=== PATIENT | male | born 1945 | race Caucasian/White ===

== ENCOUNTER 2019-04-04 17:09 | Emergency (ER) | payer MEDICARE, OTHER ==
[2019-04-04 17:59] VITALS: BP 170/91; PULSE 111
--- NOTE | 2019-04-04 18:40 | EDM.PDOC ---
ED HPI GENERAL MEDICAL PROBLEM - General Chief Complaint: Genitourinary Problem Stated Complaint: BLOOD CLOTS IN URINE Time Seen by Provider: 04/04/19 18:25 Source of Information: Reports: Patient, Family History Limitations: Reports: No Limitations - History of Present Illness INITIAL COMMENTS - FREE TEXT/NARRATIVE: 74-year-old male with asymptomatic hematuria for the past 3 days. He is on Plavix. No trauma, no pain, no fever or chills, no dysuria, no nausea or vomiting or any other symptoms. Onset: Gradual Duration: Day(s): (3 days slowly worsening) Associated Symptoms: Reports: No Other Symptoms denies Pain Score (Numeric/FACES): 0 - Related Data Allergies Allergy/AdvReac Type Severity Reaction Status Date / Time niacin Allergy Itching Verified 07/10/14 02:25 Home Meds: Home Meds Albuterol Sulfate [Proair Hfa] 2 puff IH Q4HR PRN 03/17/13 [History] Aspirin [Adult Low Dose Aspirin EC] 81 mg PO DAILY 03/17/13 [History] Clopidogrel [Plavix] 75 mg PO DAILY 03/17/13 [History] Isosorbide Mononitrate [Imdur] 30 mg PO DAILY 03/17/13 [History] Fluticasone/Salmeterol [Advair 250-50] 1 puff INH BID 04/04/19 [History] Gabapentin [Neurontin] 300 - 600 mg PO BEDTIME PRN 04/04/19 [History] Levothyroxine [Synthroid] 50 mcg PO DAILY 04/04/19 [History] Tamsulosin HCl 0.4 mg PO DAILY 04/04/19 [History] atorvaSTATin [Lipitor] 80 mg PO DAILY 04/04/19 [History] Past Medical History Cardiovascular History: Reports: CAD, Heart Failure, Hypertension, Other (See Below) Other Cardiovascular History: Aortic valve stenosis Genitourinary History: Reports: Renal Disease - Past Surgical History Male Surgical History: Reports: TURP-Transurethral Resection of Prostate Social & Family History - Tobacco Use Smoking Status *Q: Never Smoker - Caffeine Use Caffeine Use: Reports: Coffee - Recreational Drug Use Recreational Drug Use: No ED ROS GENERAL - Review of Systems Review Of Systems: See Below Constitutional: Denies: Fever, Chills HEENT: Reports: No Symptoms Respiratory: Denies: Shortness of Breath Cardiovascular: Denies: Chest Pain GI/Abdominal: Denies: Abdominal Pain, Nausea, Vomiting : Reports: Hematuria. Denies: Flank Pain, Frequency, Urgency Skin: Reports: No Symptoms ED EXAM, RENAL/ - Physical Exam Exam: See Below Exam Limited By: No Limitations General Appearance: Alert, No Apparent Distress Head: Atraumatic Respiratory/Chest: No Respiratory Distress, Lungs Clear GI/Abdominal: Non-Tender Back Exam: No: CVA Tenderness (R), CVA Tenderness (L) Neurological: Alert, Oriented Psychiatric: Normal Affect, Normal Mood Skin Exam: Warm, Dry Course - Vital Signs Last Recorded V/S: Last Vital Signs Temp 98.1 F 04/04/19 18:00 Pulse 111 H 04/04/19 18:00 Resp 16 04/04/19 18:00 BP 170/91 H 04/04/19 18:00 Pulse Ox 92 L 04/04/19 18:00 - Orders/Labs/Meds Labs: Laboratory Tests 04/04/19 04/04/19 04/04/19 Range/Units 18:38 18:49 18:49 WBC 6.9 (4.5-11.0) K/uL RBC 4.52 (4.30-5.90) M/uL Hgb 13.1 (12.0-15.0) g/dL Hct 39.7 L (40.0-54.0) % MCV 88 (80-98) fL MCH 29 (27-31) pg MCHC 33 (32-36) % Plt Count 240 (150-400) K/uL Neut % (Auto) 53 (36-66) % Lymph % (Auto) 29 (24-44) % [place] % (Auto) 10 H (2-6) % Eos % (Auto) 8 H (2-4) % Baso % (Auto) 0 (0-1) % Sodium 139 L (140-148) mmol/L Potassium 3.9 (3.6-5.2) mmol/L Chloride 103 (100-108) mmol/L Carbon Dioxide 30 (21-32) mmol/L Anion Gap 9.9 (5.0-14.0) mmol/L BUN 19 H (7-18) mg/dL Creatinine 1.4 H (0.8-1.3) mg/dL Est Cr Clr Drug Dosing 39.05 mL/min Estimated GFR (MDRD) 49 L (>60) Glucose 116 H (74-106) mg/dL Calcium 8.5 (8.5-10.1) mg/dL Total Bilirubin 0.3 (0.2-1.0) mg/dL AST 17 (15-37) U/L ALT 27 (12-78) U/L Alkaline Phosphatase 67 D (46-116) U/L Total Protein 7.3 (6.4-8.2) g/dL Albumin 3.7 (3.4-5.0) g/dL Globulin 3.6 H (2.3-3.5) g/dL Albumin/Globulin Ratio 1.0 L (1.2-2.2) Urine Color Red A (YELLOW) Urine Appearance Turbid A (CLEAR) Urine pH 7.0 (5.0-8.0) Ur Specific [place] >= 1.030 (1.008-1.030) Urine Protein 100 H (NEGATIVE) mg/dL Urine Glucose (UA) Negative (NEGATIVE) mg/dL Urine Ketones Negative (NEGATIVE) mg/dL Urine Occult Blood Moderate H (NEGATIVE) Urine Nitrite Negative (NEGATIVE) Urine Bilirubin Negative (NEGATIVE) Urine Urobilinogen 0.2 (0.2-1.0) EU/dL Ur Leukocyte Esterase Negative (NEGATIVE) Urine RBC Packed H (0-5) Urine WBC Not seen (0-5) Ur Epithelial Cells Not seen Amorphous Sediment Not seen Urine Bacteria Not seen Urine Mucus Not seen Meds: Medications Discontinued Medications Generic Name Dose Route Start Last Admin Trade Name Freq PRN Reason Stop Dose Admin Sodium Chloride 1,000 mls @ 1,000 mls/hr 04/04/19 20:00 04/04/19 20:18 Normal Saline IV 1,000 mls/hr ASDIRECTED JOEL Administration Sodium Chloride 74 mls @ 3 mls/sec 04/04/19 20:15 04/04/19 20:37 Normal Saline IV 3 mls/sec ASDIRECTED JOEL Administration Iopamidol 100 ml 04/04/19 20:01 04/04/19 20:37 Isovue-300 (61%) IV 04/05/19 20:02 100 ml . DIRECTED PRN Administration RADIOLOGY EXAM - Re-Assessments/Exams Free Text/Narrative Re-Assessment/Exam: 04/04/19 18:40 Urine is grossly bloody, UA was obtained as well as a CBC and CMP. 04/04/19 21:37 Phone consultation with urology was obtained and a urogram CT was recommended. Results are below. IMPRESSION: 1. The urinary tract appears unremarkable. 2. No acute findings in the abdomen or pelvis. 3. Marked heterogeneity and enlargement of the prostate gland. Recommend correlation with L[facility]IS and PSA levels. The bladder is decompressed with diffuse bladder wall thickening probably reflecting bladder outlet obstruction. 4. Rectosigmoid colon is incompletely distended however there may be asymmetric wall thickening of the rectum. Consider colonoscopy. 04/04/19 21:47 Patient is agreeable to rechecking early next week for a prostate exam and discussing with his primary care provider referral to urology. Hopefully Dr. Klein can see the patient early next week and set up urology referral if necessary. Departure - Departure Time of Disposition: 22:00 Disposition: Home, Self-Care 01 Clinical Impression: Hematuria syndrome - Discharge Information Instructions: Hematuria, Adult Referrals: Zulema Pabon MD [Primary Care Provider] - Forms: ED Department Discharge Care Plan Goals: Return if you develop difficulties urinating, otherwise recheck with your primary doctor early next week to discuss any further testing, exam, or urology referral. Sepsis Event Note - Evaluation Sepsis Screening Result: No Definite Risk - Focused Exam Vital Signs: Vital Signs Temp Pulse Resp BP Pulse Ox 04/04/19 18:00 98.1 F 111 H 16 170/91 H 92 L 04/04/19 17:52 98.1 F 111 H 16 170/91 H 92 L Date Exam was Performed: 04/05/19 Time Exam was Performed: 00:05
[2019-04-04] MEDS ORDERED: Sodium Chloride 0.9% 1,000 ML IV SCH (20:00)
[2019-04-04] MEDS ORDERED: Iopamidol 612 MG/ML 100 ML Bottle IV PRN (20:01)
--- NOTE | 2019-04-04 21:33 | CRLCT ---
INDICATION: Hematuria CT urogram. 100 mL Isovue. Coronal sagittal reformatted images obtained. Findings: Heart size normal. Subpleural 4 mm right lower lobe pulmonary nodule series 3 image 1. 5 mm right lower lobe subpleural pulmonary nodule on image 8. Multiple low-density lesions in the liver these most likely reflect cysts. No biliary dilatation. Spleen pancreas adrenal glands unremarkable gallbladder is unremarkable. Ectasia of the abdominal aorta. Abundant stool in the colon. The bowel appears unremarkable. No renal calculi no hydronephrosis. There is symmetric enhancement of both kidneys. No suspicious filling defects in the opacified collecting systems, ureters. There is marked enlargement and heterogeneity of the prostate gland which protrudes into the bladder. Urinary bladder is decompressed with diffuse bladder wall thickening. The rectum is incompletely distended. There is possible slight asymmetric wall thickening which could be due to non distention Slight mottled appearance of the pelvis could be related to demineralization. IMPRESSION: 1. The urinary tract appears unremarkable. 2. No acute findings in the abdomen or pelvis. 3. Marked heterogeneity and enlargement of the prostate gland. Recommend correlation with [facility]IS and PSA levels. The bladder is decompressed with diffuse bladder wall thickening probably reflecting bladder outlet obstruction. 4. Rectosigmoid colon is incompletely distended however there may be asymmetric wall thickening of the rectum. Consider colonoscopy. Please note that all CT scans at this facility use dose modulation, iterative reconstruction, and/or weight-based dosing when appropriate to reduce radiation dose to as low as reasonably achievable. Dictated by Chichi Adkins MD @ Apr 04 2019 9:19PM Signed by Dr. Chichi Adkins @ Apr 04 2019 9:32PM
== END 2019-04-04 22:00 | disposition home or self-care (01) ==
LOC: JP.ED 17:09
DX: R31.9 Hematuria, unspecified (principal); I11.0 Hypertensive heart disease with heart failure; I50.9 Heart failure, unspecified; I25.10 Atherosclerotic heart disease of native coronary artery without angina pectoris; Z79.899 Other long term (current) drug therapy; Z79.82 Long term (current) use of aspirin; Z88.8 Allergy status to other drugs, medicaments and biological substances
CPT/HCPCS: 36415; 74178; 80053; 81001; 85025; 96360; 99283; 99284; J7030; J7050; Q9967

== ENCOUNTER 2019-04-21 08:44 | Day surgery (SDC) | payer MEDICARE ==
[2019-04-21] MEDS ORDERED: Sodium Chloride 0.9% 1,000 ML IV SCH (09:45)
[2019-04-21] MEDS ORDERED: Propofol 200 MG/20 ML SDV ONE (10:42)
[2019-04-21] MEDS ORDERED: fentaNYL 100 MCG/2 ML SDV ONE (10:42)
[2019-04-21] MEDS ORDERED: Midazolam 1 MG/ML 2 ML SDV ONE (10:42)
[2019-04-21 13:34] VITALS: BP 126/81; PULSE 68
--- NOTE | 2019-04-21 14:48 | OR ---
DATE OF PROCEDURE: 04/21/2019 SURGEON: Luis Antonio Felton MD PROCEDURE: Colonoscopy. FINDINGS: Ascending colon polyp, approximately 5 mm, completely removed using cold biopsy forceps. COMPLICATIONS: None. OVEN TENDER: None. ANESTHESIA: MAC. PREOPERATIVE DIAGNOSIS: Screening colonoscopy. POSTOPERATIVE DIAGNOSIS: Screening colonoscopy. RISKS: Risks, benefits, alternatives, and limitations including, but not limited to infection, bleeding, and perforation were explained to the patient, who wished to proceed. PROCEDURE IN DETAIL: The patient was placed in left lateral decubitus position. Digital rectal exam was performed without abnormality. The scope was introduced and advanced atraumatically to the ileocecal valve. A photo was taken. The scope was brought back to the ascending, transverse, descending colon, and retroflexed. No evidence of old or new blood. No masses. The polyp was identified and completely removed. The patient had 1 to 2 diverticula. No abnormalities on retroflexion. The patient tolerated the procedure well. Luis Antonio Felton MD /[id number]
== END 2019-04-21 13:47 | disposition home or self-care (01) ==
LOC: JP.SDS 08:44
PROVIDERS: ATTEND Surgery
DX: Z12.11 Encounter for screening for malignant neoplasm of colon (principal); D12.2 Benign neoplasm of ascending colon; I25.10 Atherosclerotic heart disease of native coronary artery without angina pectoris; I13.0 Hypertensive heart and chronic kidney disease with heart failure and stage 1 through stage 4 chronic kidney disease, or unspecified chronic kidney disease; E11.22 Type 2 diabetes mellitus with diabetic chronic kidney disease; N18.9 Chronic kidney disease, unspecified; I50.9 Heart failure, unspecified; J45.909 Unspecified asthma, uncomplicated; F17.200 Nicotine dependence, unspecified, uncomplicated; Z91.048 Other nonmedicinal substance allergy status
CPT/HCPCS: 45380; J2250; J2704; J3010; J7030

== ENCOUNTER 2019-09-25 18:07 | Emergency (ER) | payer MEDICARE ==
--- NOTE | 2019-09-25 18:29 | EDM.PDOC ---
ED HPI GENERAL MEDICAL PROBLEM - General Chief Complaint: Syncope Stated Complaint: MED [facility] Time Seen by Provider: 09/25/19 18:10 Source of Information: Reports: Patient, EMS, Old Records History Limitations: Reports: No Limitations - History of Present Illness INITIAL COMMENTS - FREE TEXT/NARRATIVE: 74 yo male here via EMS from his home after a fall. He has had recurring spells where his legs will feel rubbery and if he can quickly sit he will be fine. Otherwise he falls and may or may not pass out. This same thing happened today and he injured his nose. He does not recall hitting the ground, but states he feels fine now. His past episodes have been worked up and nothing found. Onset: Today Onset Date: 09/25/19 Duration: Minutes:, Resolved Prior to Arrival Location: Reports: Generalized Quality: Reports: Other (denies pain associated with this spell) Severity: Mild Improves with: Reports: Other (time) Worsens with: Reports: Other (unknown) Context: Reports: Other (See HPI) Associated Symptoms: Reports: No Other Symptoms Treatments ACCOUNT SUPPORT REP: Reports: Other (see below) (none) - Related Data Allergies Allergy/AdvReac Type Severity Reaction Status Date / Time niacin Allergy Itching Verified 04/17/19 13:44 Home Meds: Home Meds Aspirin [Adult Low Dose Aspirin EC] 81 mg PO DAILY 03/17/13 [History] Clopidogrel [Plavix] 75 mg PO DAILY 03/17/13 [History] Isosorbide Mononitrate [Imdur] 30 mg PO DAILY 03/17/13 [History] Fluticasone/Salmeterol [Advair 250-50] 1 puff INH BID 04/04/19 [History] Gabapentin [Neurontin] 300 - 600 mg PO BEDTIME PRN 04/04/19 [History] Levothyroxine [Synthroid] 50 mcg PO DAILY 04/04/19 [History] Tamsulosin HCl 0.4 mg PO DAILY 04/04/19 [History] atorvaSTATin [Lipitor] 80 mg PO DAILY 04/04/19 [History] Albuterol [Ventolin HFA] 2 puff INH Q4H PRN 04/17/19 [History] Montelukast [Singulair] 10 mg PO DAILY 04/17/19 [History] Fluticasone/Salmeterol [Advair 250-50] 1 puff INH BID 09/25/19 [History] Past Medical History HEENT History: Reports: Impaired Vision Cardiovascular History: Reports: CAD, Heart Failure, Hypertension, SOB on Exertion, Stents, Other (See Below) Other Cardiovascular History: Aortic valve stenosis Respiratory History: Reports: Sleep Apnea Gastrointestinal History: Reports: Chronic Constipation, Hemorrhoids Genitourinary History: Reports: Renal Disease Musculoskeletal History: Reports: Back Pain, Chronic - Infectious Disease History Infectious Disease History: Reports: Chicken Pox, Measles, Mumps, Rubella - Past Surgical History HEENT Surgical History: Reports: Naso-Sinus Surgery, Oral Surgery Cardiovascular Surgical History: Reports: Coronary Artery Stent Respiratory Surgical History: Reports: None GI Surgical History: Reports: Colonoscopy Male Surgical History: Reports: TURP-Transurethral Resection of Prostate Endocrine Surgical History: Reports: None Musculoskeletal Surgical History: Reports: Shoulder Surgery Dermatological Surgical History: Reports: None Social & Family History - Tobacco Use Smoking Status *Q: Never Smoker - Caffeine Use Caffeine Use: Reports: Coffee - Recreational Drug Use Recreational Drug Use: No ED ROS GENERAL - Review of Systems Review Of Systems: See Below Constitutional: Reports: No Symptoms HEENT: Reports: Nosebleed (small wound to dorsum of the nose) Respiratory: Reports: No Symptoms Cardiovascular: Reports: No Symptoms GI/Abdominal: Reports: No Symptoms : Reports: No Symptoms Musculoskeletal: Reports: No Symptoms Skin: Reports: Wound (small wound to nose near the bridge.) Neurological: Reports: Dizziness - Physical Exam Exam: See Below Exam Limited By: No Limitations General Appearance: Alert, WD/WN, No Apparent Distress Eye Exam: Bilateral Eye: Normal Inspection Ears: Normal External Exam, Normal Canal, Hearing Grossly Normal, Normal TMs Nose: Normal Inspection, No Blood, Other (wound dorsally, no deformity or swelling) Throat/Mouth: Normal Inspection, Normal Lips, Normal Oropharynx, Normal Voice, No Airway Compromise Head Exam: Atraumatic, Normocephalic Neck: Normal Inspection, Supple, Non-Tender. No: Lymphadenopathy (R), Lymphadenopathy (L) Respiratory/Chest: No Respiratory Distress, Lungs Clear, Normal Breath Sounds, No Accessory Muscle Use Cardiovascular: Regular Rate, Rhythm, No Edema GI/Abdominal: Normal Bowel Sounds, Soft, Non-Tender, No Distention Neuro Exam (Abbreviated): Alert, Oriented, CN II-XII Intact, Normal Cognition, No Motor/Sensory Deficits Back Exam: Normal Inspection Extremities: Normal Inspection, Normal Range of Motion, Non-Tender, No Pedal Edema Psychiatric: Normal Affect, Normal Mood Skin Exam: Warm, Dry, Normal Color, No Rash, Wound/Incision (near bridge of nose) Course - Vital Signs Last Recorded V/S: Last Vital Signs Temp 36.1 C 09/25/19 18:13 Pulse 63 09/25/19 19:28 Resp 13 09/25/19 19:28 BP 134/81 09/25/19 19:28 Pulse Ox 96 09/25/19 19:28 Orthostatic Blood Pressure [ 127/60 Standing] Orthostatic Blood Pressure [ 118/79 Sitting] Orthostatic Blood Pressure [ 126/68 Supine] - Orders/Labs/Meds Orders: Active Orders 24 hr Category Date Time Status Cardiac Monitoring [RC] .As Directed Care 09/25/19 18:24 Active Orthostatic Vital Signs [RC] ASDIRECTED Care 09/25/19 18:24 Active UA W/MICROSCOPIC [URIN] Stat Lab 09/25/19 18:24 Ordered Labs: Laboratory Tests 09/25/19 09/25/19 Range/Units 18:36 18:36 WBC 6.4 (4.5-11.0) K/uL RBC 4.30 (4.30-5.90) M/uL Hgb 12.2 (12.0-15.0) g/dL Hct 37.6 L (40.0-54.0) % MCV 87 (80-98) fL MCH 28 (27-31) pg MCHC 32 (32-36) % Plt Count 272 (150-400) K/uL Sodium 143 (140-148) mmol/L Potassium 3.8 (3.6-5.2) mmol/L Chloride 106 (100-108) mmol/L Carbon Dioxide 31 (21-32) mmol/L Anion Gap 6.1 (5.0-14.0) mmol/L BUN 24 H (7-18) mg/dL Creatinine 1.5 H (0.8-1.3) mg/dL Est Cr Clr Drug Dosing 36.44 mL/min Estimated GFR (MDRD) 46 L (>60) Glucose 112 H (74-106) mg/dL Calcium 8.3 L (8.5-10.1) mg/dL Troponin I < 0.017 (0.000-0.056) ng/mL Meds: Medications Discontinued Medications Generic Name Dose Route Start Last Admin Trade Name Kevin PRN Reason Stop Dose Admin Lactated Ringer's 1,000 mls @ 1,000 mls/hr 09/25/19 19:16 09/25/19 19:54 Ringers, Lactated IV 09/25/19 20:15 1,000 mls/hr BOLUS ONE Administration Departure - Departure Time of Disposition: 20:50 Disposition: Home, Self-Care 01 Condition: Good Clinical Impression: Mild dehydration, Orthostatic hypotension - Discharge Information *PRESCRIPTION DRUG MONITORING PROGRAM REVIEWED*: Not Applicable *COPY OF PRESCRIPTION DRUG MONITORING REPORT IN PATIENT ASHOK: Not Applicable Instructions: Dehydration, Elderly, [id number] Referrals: PCP,None [Primary Care Provider] - Forms: ED Department Discharge Additional Instructions: Drink enough fluids so that your urine is light yellow in color. Recheck with your provider as needed. Sepsis Event Note (ED) - Evaluation Sepsis Screening Result: No Definite Risk - Focused Exam Vital Signs: Vital Signs Temp Pulse Resp BP Pulse Ox 09/25/19 19:28 63 13 134/81 96 09/25/19 18:13 36.1 C 95 16 129/71 95 09/25/19 18:12 36.1 C 95 16 129/71 95 - My Orders Last 24 Hours: My Active Orders 09/25/19 18:24 Cardiac Monitoring [RC] .As Directed Orthostatic Vital Signs [RC] ASDIRECTED UA W/MICROSCOPIC [URIN] Stat - Assessment/Plan Last 24 Hours: My Active Orders 09/25/19 18:24 Cardiac Monitoring [RC] .As Directed Orthostatic Vital Signs [RC] ASDIRECTED UA W/MICROSCOPIC [URIN] Stat
[2019-09-25] MEDS ORDERED: Lactated Ringers 1,000 ML IV ONE (19:16)
[2019-09-25 19:29] VITALS: BP 134/81; PULSE 63
== END 2019-09-25 21:17 | disposition home or self-care (01) ==
LOC: JP.ED 18:07
DX: E86.0 Dehydration (principal); I95.1 Orthostatic hypotension; I25.10 Atherosclerotic heart disease of native coronary artery without angina pectoris; I11.0 Hypertensive heart disease with heart failure; I50.9 Heart failure, unspecified; Z79.82 Long term (current) use of aspirin; Z79.02 Long term (current) use of antithrombotics/antiplatelets; Z79.899 Other long term (current) drug therapy; Z95.5 Presence of coronary angioplasty implant and graft
CPT/HCPCS: 36415; 80048; 84484; 85027; 96360; 99284; J7120; 99283

== ENCOUNTER 2020-06-13 21:44 | Emergency (ER) | payer MEDICARE ==
[2020-06-13] MEDS ORDERED: Lactated Ringers 1,000 ML IV ONE (22:41)
[2020-06-13 22:42] VITALS: BP 111/70; PULSE 73
[2020-06-13] MEDS ORDERED: Acetaminophen/HYDROcodone 325-5 MG Tab PO ONE (22:43)
--- NOTE | 2020-06-13 22:49 | EDM.PDOC ---
ED HPI GENERAL MEDICAL PROBLEM - General Chief Complaint: Gastrointestinal Problem Stated Complaint: diarrhea, high fever, not eating Time Seen by Provider: 06/13/20 22:30 Source of Information: Reports: Patient, Old Records, RN History Limitations: Reports: No Limitations - History of Present Illness INITIAL COMMENTS - FREE TEXT/NARRATIVE: 75 yo male here with diarrhea and some cramping. Had a fever yesterday. No blood in his stools. No known exposures. Not dizzy with standing. Took loperamide 2 hrs ago for the first time. Onset: Gradual Onset Date: 06/11/20 Duration: Day(s): (3), Waxing/Waning Location: Reports: Abdomen Quality: Reports: Other (cramps) Severity: Moderate Improves with: Reports: None Worsens with: Reports: Eating Context: Reports: Other (See HPI) Associated Symptoms: Reports: Fever/Chills (not in last 24 hrs). Denies: Nausea/Vomiting Treatments HAT AND CAP SEWER: Reports: Other (see below) (loperamide) - Related Data Allergies Allergy/AdvReac Type Severity Reaction Status Date / Time niacin Allergy Itching Verified 06/13/20 21:48 Home Meds: Home Meds Clopidogrel [Plavix] 75 mg PO DAILY 03/17/13 [History] Isosorbide Mononitrate [Imdur] 30 mg PO DAILY 03/17/13 [History] Gabapentin [Neurontin] 300 - 600 mg PO BEDTIME PRN 04/04/19 [History] Levothyroxine [Synthroid] 50 mcg PO DAILY 04/04/19 [History] Tamsulosin HCl 0.4 mg PO DAILY 04/04/19 [History] atorvaSTATin [Lipitor] 80 mg PO DAILY 04/04/19 [History] Albuterol [Ventolin HFA] 2 puff INH Q4H PRN 04/17/19 [History] Montelukast [Singulair] 10 mg PO DAILY 04/17/19 [History] Fluticasone/Salmeterol [Advair 250-50] 1 puff INH BID 09/25/19 [History] Past Medical History HEENT History: Reports: Impaired Vision Cardiovascular History: Reports: CAD, Heart Failure, Hypertension, SOB on E xertion, Stents, Other (See Below) Other Cardiovascular History: Aortic valve stenosis Respiratory History: Reports: Sleep Apnea Gastrointestinal History: Reports: Chronic Constipation, Hemorrhoids Genitourinary History: Reports: Renal Disease Musculoskeletal History: Reports: Back Pain, Chronic - Infectious Disease History Infectious Disease History: Reports: Chicken Pox, Measles, Mumps, Rubella - Past Surgical History HEENT Surgical History: Reports: Naso-Sinus Surgery, Oral Surgery Cardiovascular Surgical History: Reports: Coronary Artery Stent Respiratory Surgical History: Reports: None GI Surgical History: Reports: Colonoscopy Male Surgical History: Reports: TURP-Transurethral Resection of Prostate Endocrine Surgical History: Reports: None Musculoskeletal Surgical History: Reports: Shoulder Surgery Dermatological Surgical History: Reports: None Social & Family History - Tobacco Use Tobacco Use Status *Q: Former Tobacco User Used Tobacco, but Quit: Yes Month/Year Tobacco Last Used: 55 - Caffeine Use Caffeine Use: Reports: Coffee, Soda - Recreational Drug Use Recreational Drug Use: No ED ROS GENERAL - Review of Systems Review Of Systems: See Below Constitutional: Reports: No Symptoms HEENT: Reports: No Symptoms Respiratory: Reports: No Symptoms Cardiovascular: Reports: No Symptoms GI/Abdominal: Reports: Abdominal Pain (cramping intermittent), Diarrhea. Denies: Black Stool, Bloody Stool, Constipation, Distension, Flatus, Hematemesis, Melena, Nausea, Vomiting : Reports: No Symptoms Musculoskeletal: Reports: No Symptoms Skin: Reports: No Symptoms Neurological: Reports: No Symptoms ED EXAM, GI/ABD - Physical Exam Exam: See Below Exam Limited By: No Limitations General Appearance: Alert, WD/WN, No Apparent Distress Eyes: Bilateral: Normal Appearance Ears: Normal External Exam, Normal Canal, Hearing Loss Nose: Normal Inspection, No Blood Throat/Mouth: Normal Inspection, Normal Lips, Normal Oropharynx, Normal Voice, No Airway Compromise Head: Atraumatic, Normocephalic Neck: Normal Inspection Respiratory/Chest: No Respiratory Distress, Lungs Clear, Normal Breath Sounds, No Accessory Muscle Use Cardiovascular: Regular Rate, Rhythm, No Edema GI/Abdominal Exam: Normal Bowel Sounds, Soft, Non-Tender, No Distention Back Exam: Normal Inspection. No: CVA Tenderness (R), CVA Tenderness (L) Extremities: Normal Inspection, Normal Range of Motion, Non-Tender, No Pedal Edema Neurological: Alert, Oriented, CN II-XII Intact, Normal Cognition, No Motor/Sensory Deficits Psychiatric: Normal Affect, Normal Mood Skin Exam: Warm, Dry, Intact, Normal Color, No Rash Course - Vital Signs Last Recorded V/S: Last Vital Signs Temp 36.7 C 06/13/20 22:32 Pulse 73 06/13/20 22:41 Resp 16 06/13/20 22:32 BP 111/70 06/13/20 22:41 Pulse Ox 96 06/13/20 22:41 - Orders/Labs/Meds Orders: Active Orders 24 hr Category Date Time Status CDiff [CLOS DIFFICILE PCR W/REFLEX] [] Stat Lab 06/13/20 21:52 Ordered CULTURE STOOL + SHIGATOX [] Stat Lab 06/13/20 21:52 Ordered Lactated Ringers [Ringers, Lactated] 1,000 ml Med 06/13/20 22:41 Active IV BOLUS Medication Orders Lactated Ringer's (Ringers, Lactated) 1,000 mls @ 1,000 mls/hr IV BOLUS ONE Stop: 06/13/20 23:40 Last Admin: 06/13/20 22:48 Dose: 1,000 mls/hr Documented by: CHRISTOPHER Labs: Laboratory Tests 06/13/20 06/13/20 Range/Units 22:12 22:12 WBC 4.1 L (4.5-11.0) K/uL RBC 4.61 (4.30-5.90) M/uL Hgb 13.0 (12.0-15.0) g/dL Hct 39.9 L (40.0-54.0) % MCV 87 (80-98) fL MCH 28 (27-31) pg MCHC 33 (32-36) % Plt Count 228 (150-400) K/uL Sodium 143 (140-148) mmol/L Potassium 3.5 L (3.6-5.2) mmol/L Chloride 104 (100-108) mmol/L Carbon Dioxide 30 (21-32) mmol/L Anion Gap 12.5 (5.0-14.0) mmol/L BUN 15 (7-18) mg/dL Creatinine 1.3 (0.8-1.3) mg/dL Est Cr Clr Drug Dosing 41.39 mL/min Estimated GFR (MDRD) 54 L (>60) Glucose 100 (74-106) mg/dL Calcium 8.6 (8.5-10.1) mg/dL Meds: Medications Generic Name Dose Route Start Last Admin Trade Name Freq PRN Reason Stop Dose Admin Lactated Ringer's 1,000 mls @ 1,000 mls/hr 06/13/20 22:41 06/13/20 22:48 Ringers, Lactated IV 06/13/20 23:40 1,000 mls/hr BOLUS ONE Administration Discontinued Medications Generic Name Dose Route Start Last Admin Trade Name Kevin PRN Reason Stop Dose Admin Hydrocodone Bitart/Acetaminophen 1 tab 06/13/20 22:43 Acetaminophen/Hydrocodone 325-5 Mg Tab PO 06/13/20 22:44 ONETIME ONE Departure - Departure Time of Disposition: 23:45 Disposition: Home, Self-Care 01 Condition: Good Clinical Impression: Viral enteritis - Discharge Information *PRESCRIPTION DRUG MONITORING PROGRAM REVIEWED*: No *COPY OF PRESCRIPTION DRUG MONITORING REPORT IN PATIENT ASHOK: No Instructions: Diarrhea, Adult, Pflv-[id number] Referrals: Lizzie Massey PA-C [Primary Care Provider] - Forms: ED Department Discharge Additional Instructions: Continue loperamide per package instructions as needed. As long as your diarrhea persists, limit your diet to soda crackers, bananas, jello, rice, chicken with rice or turkey with rice soups, yogurt, apple sauce, and any clear liquid. Advance your diet when your diarrhea resolves. Return if fever and/or bloody diarrhea recurs. Sepsis Event Note (ED) - Evaluation Sepsis Screening Result: No Definite Risk - Focused Exam Vital Signs: Vital Signs Temp Pulse Resp BP Pulse Ox 06/13/20 22:41 73 111/70 96 06/13/20 22:32 36.7 C 83 16 143/86 H 96 06/13/20 22:04 36.7 C 83 16 143/86 H 96 - My Orders Last 24 Hours: My Active Orders 06/13/20 21:52 CDiff [CLOS DIFFICILE PCR W/REFLEX] [RM] Stat CULTURE STOOL + SHIGATOX [RM] Stat 06/13/20 22:41 Lactated Ringers [Ringers, Lactated] 1,000 ml IV BOLUS - Assessment/Plan Last 24 Hours: My Active Orders 06/13/20 21:52 CDiff [CLOS DIFFICILE PCR W/REFLEX] [RM] Stat CULTURE STOOL + SHIGATOX [RM] Stat 06/13/20 22:41 Lactated Ringers [Ringers, Lactated] 1,000 ml IV BOLUS
== END 2020-06-13 23:50 | disposition home or self-care (01) ==
LOC: JP.ED 21:44
DX: A08.4 Viral intestinal infection, unspecified (principal); I25.10 Atherosclerotic heart disease of native coronary artery without angina pectoris; I11.0 Hypertensive heart disease with heart failure; I50.9 Heart failure, unspecified; Z87.891 Personal history of nicotine dependence; Z79.02 Long term (current) use of antithrombotics/antiplatelets; Z79.899 Other long term (current) drug therapy; Z88.8 Allergy status to other drugs, medicaments and biological substances
CPT/HCPCS: 36415; 80048; 85027; 99284; J7120; 99282

== ENCOUNTER 2021-02-11 10:09 | Emergency (ER) | payer MEDICARE ==
--- NOTE | 2021-02-11 10:49 | EDM.PDOC ---
ED HPI GENERAL MEDICAL PROBLEM - General Chief Complaint: Respiratory Problem Stated Complaint: FEVER,COUGH,PAIN IN CHEST Time Seen by Provider: 02/11/21 10:35 Source of Information: Reports: Patient, Old Records, RN History Limitations: Reports: No Limitations - History of Present Illness INITIAL COMMENTS - FREE TEXT/NARRATIVE: 76 yo male presents with onset this past Thurs of body aches, cough and now mild GALVAN. No fever. He had the [employer] Covid vaccine, but no booster and no flu vaccine. His cough just turned productive on the way to the hospital. Onset: Gradual Onset Date: 02/09/21 Duration: Day(s): (2), Getting Worse Location: Reports: Chest Quality: Reports: Ache (generalized body aches) Severity: Mild Improves with: Reports: None Worsens with: Reports: Other (time) Context: Reports: Other (See HPI) Associated Symptoms: Reports: Cough, Shortness of Breath (GALVAN). Denies: Fever/Chills, Nausea/Vomiting Treatments TENANT COORDINATOR: Reports: Other (see below) (none) - Related Data Allergies Allergy/AdvReac Type Severity Reaction Status Date / Time niacin Allergy Itching Verified 02/11/21 10:31 Home Meds: Home Meds Clopidogrel [Plavix] 75 mg PO DAILY 03/17/13 [History] Isosorbide Mononitrate [Imdur] 30 mg PO DAILY 03/17/13 [History] Gabapentin [Neurontin] 300 - 600 mg PO BEDTIME PRN 04/04/19 [History] Levothyroxine [Synthroid] 50 mcg PO DAILY 04/04/19 [History] Tamsulosin HCl 0.4 mg PO DAILY 04/04/19 [History] atorvaSTATin [Lipitor] 80 mg PO DAILY 04/04/19 [History] Albuterol [Ventolin HFA] 2 puff INH Q4H PRN 04/17/19 [History] Montelukast [Singulair] 10 mg PO DAILY 04/17/19 [History] Fluticasone/Salmeterol [Advair 250-50] 1 puff INH BID 09/25/19 [History] Past Medical History HEENT History: Reports: Impaired Vision Cardiovascular History: Reports: CAD, Heart Failure, Hypertension, SOB on Exertion, Stents, Other (See Below) Other Cardiovascular History: Aortic valve stenosis Respiratory History: Reports: Sleep Apnea Gastrointestinal History: Reports: Chronic Constipation, Hemorrhoids Genitourinary History: Reports: Renal Disease Musculoskeletal History: Reports: Back Pain, Chronic - Infectious Disease History Infectious Disease History: Reports: Chicken Pox, Measles, Mumps, Rubella - Past Surgical History HEENT Surgical History: Reports: Naso-Sinus Surgery, Oral Surgery Cardiovascular Surgical History: Reports: Coronary Artery Stent GI Surgical History: Reports: Colonoscopy Male Surgical History: Reports: TURP-Transurethral Resection of Prostate Musculoskeletal Surgical History: Reports: Shoulder Surgery Social & Family History - Tobacco Use Tobacco Use Status *Q: Never Tobacco User - Caffeine Use Caffeine Use: Reports: Coffee - Recreational Drug Use Recreational Drug Use: No ED ROS GENERAL - Review of Systems Review Of Systems: See Below Constitutional: Reports: No Symptoms HEENT: Reports: No Symptoms Respiratory: Reports: Cough, Sputum. Denies: Shortness of Breath Cardiovascular: Reports: Dyspnea on Exertion Endocrine: Reports: No Symptoms GI/Abdominal: Reports: No Symptoms : Reports: No Symptoms Musculoskeletal: Reports: No Symptoms Skin: Reports: No Symptoms Neurological: Reports: No Symptoms Psychiatric: Reports: No Symptoms ED EXAM, GENERAL - Physical Exam Exam: See Below Exam Limited By: No Limitations General Appearance: Alert, WD/WN, No Apparent Distress Eye Exam: Bilateral Eye: Normal Inspection Ears: Normal External Exam, Normal Canal, Hearing Grossly Normal, Normal TMs Ear Exam: Bilateral Ear: Auricle Normal, Canal Normal, TM normal Nose: Normal Inspection, No Blood Throat/Mouth: Normal Inspection, Normal Lips, Normal Oropharynx, Normal Voice, No Airway Compromise Head: Atraumatic, Normocephalic Neck: Normal Inspection Respiratory/Chest: No Respiratory Distress, Lungs Clear, Normal Breath Sounds, No Accessory Muscle Use GI/Abdominal: Soft, Non-Tender Extremities: Normal Inspection Neurological: Alert, Oriented, CN II-XII Intact, Normal Cognition, No Motor/Sensory Deficits Psychiatric: Normal Affect, Normal Mood Skin Exam: Warm, Dry, Intact, Normal Color, No Rash Course - Vital Signs Text/Narrative:: Got an infusion of BAM while here. Last Recorded V/S: Last Vital Signs Temp 36.8 C 02/11/21 12:54 Pulse 74 02/11/21 12:54 Resp 16 02/11/21 12:54 BP 97/48 L 02/11/21 12:54 Pulse Ox 97 02/11/21 12:54 - Orders/Labs/Meds Orders: Active Orders 24 hr Category Date Time Status Acetaminophen [TylenoL] Med 02/11/21 12:30 Active 650 mg PO ONETIME PRN EPINEPHrine [Adrenalin] Med 02/11/21 12:30 Active 0.3 mg IM ONETIME PRN Famotidine [Pepcid] Med 02/11/21 12:30 Active 20 mg IV ONETIME PRN diphenhydrAMINE [Benadryl] Med 02/11/21 12:30 Active 50 mg IVPUSH ONETIME PRN methylPREDNISolone Sod Succ [Solu-MEDROL] Med 02/11/21 12:30 Active 125 mg IVPUSH ONETIME PRN Medication Orders Acetaminophen (Acetaminophen 325 Mg Tab) 650 mg PO ONETIME PRN PRN Reason: HEADACHE,CHILLS Diphenhydramine HCl (Diphenhydramine 50 Mg/Ml Sdv) 50 mg IVPUSH ONETIME PRN PRN Reason: ALLERGIC RXN Epinephrine HCl (Epinephrine 1 Mg/Ml Sdv) 0.3 mg IM ONETIME PRN PRN Reason: ALLERGIC RXN Famotidine (Famotidine 20 Mg/2 Ml Sdv) 20 mg IV ONETIME PRN PRN Reason: ALLERGIC RXN Methylprednisolone Sodium Succinate (Methylprednisolone Sodium Succinate 125 Mg/2 Ml Sdv) 125 mg IVPUSH ONETIME PRN PRN Reason: ALLERGIC RXN Labs: Laboratory Tests 02/11/21 Range/Units 10:38 SARS CoV-2 RNA Rapid IVETT Positive H Meds: Medications Generic Name Dose Route Start Last Admin Trade Name Freq PRN Reason Stop Dose Admin Acetaminophen 650 mg 02/11/21 12:30 Acetaminophen 325 Mg Tab PO ONETIME PRN HEADACHE,CHILLS Diphenhydramine HCl 50 mg 02/11/21 12:30 Diphenhydramine 50 Mg/Ml Sdv IVPUSH ONETIME PRN ALLERGIC RXN Epinephrine HCl 0.3 mg 02/11/21 12:30 Epinephrine 1 Mg/Ml Sdv IM ONETIME PRN ALLERGIC RXN Famotidine 20 mg 02/11/21 12:30 Famotidine 20 Mg/2 Ml Sdv IV ONETIME PRN ALLERGIC RXN Methylprednisolone Sodium Succinate 125 mg 02/11/21 12:30 Methylprednisolone Sodium Succinate 125 Mg/2 Ml Sdv IVPUSH ONETIME PRN ALLERGIC RXN Discontinued Medications Generic Name Dose Route Start Last Admin Trade Name Kevin PRN Reason Stop Dose Admin Acetaminophen 1,000 mg 02/11/21 10:53 02/11/21 12:48 Acetaminophen 500 Mg Tab PO 02/11/21 10:54 1,000 mg ONETIME ONE Administration Bamlanivimab 700 mg/ 160 mls @ 310 mls/hr 02/11/21 12:30 02/11/21 12:48 Etesevimab 1,400 mg/ Sodium IV 02/11/21 13:00 310 mls/hr Chloride ONETIME ONE Administration Departure - Departure Time of Disposition: 14:30 Disposition: Home, Self-Care 01 Condition: Fair Clinical Impression: COVID-19 - Discharge Information *PRESCRIPTION DRUG MONITORING PROGRAM REVIEWED*: Not Applicable *COPY OF PRESCRIPTION DRUG MONITORING REPORT IN PATIENT ASHOK: Not Applicable Instructions: COVID-19 Frequently Asked Questions, COVID-19, 10 Things You Can Do to Manage Your COVID-19 Symptoms at Home - [facility] (10/14/2020) Referrals: Letitia Sauer PA [Primary Care Provider] - Forms: ED Department Discharge Additional Instructions: Take acetaminophen for pain or fever control. Frequent hand washing and isolation to prevent spread. Stay in communication with your provider about how you are doing and to discuss when to get your booster vaccines and flu vaccine. Sepsis Event Note (ED) - Evaluation Sepsis Screening Result: No Definite Risk - Focused Exam Vital Signs: Vital Signs Temp Pulse Resp BP Pulse Ox 02/11/21 12:54 36.8 C 74 16 97/48 L 97 02/11/21 10:33 36.8 C 84 16 113/74 93 L - My Orders Last 24 Hours: My Active Orders 02/11/21 12:30 Acetaminophen [TylenoL] 650 mg PO ONETIME PRN EPINEPHrine [Adrenalin] 0.3 mg IM ONETIME PRN Famotidine [Pepcid] 20 mg IV ONETIME PRN diphenhydrAMINE [Benadryl] 50 mg IVPUSH ONETIME PRN methylPREDNISolone Sod Succ [Solu-MEDROL] 125 mg IVPUSH ONETIME PRN - Assessment/Plan Last 24 Hours: My Active Orders 02/11/21 12:30 Acetaminophen [TylenoL] 650 mg PO ONETIME PRN EPINEPHrine [Adrenalin] 0.3 mg IM ONETIME PRN Famotidine [Pepcid] 20 mg IV ONETIME PRN diphenhydrAMINE [Benadryl] 50 mg IVPUSH ONETIME PRN methylPREDNISolone Sod Succ [Solu-MEDROL] 125 mg IVPUSH ONETIME PRN
[2021-02-11] MEDS ORDERED: Acetaminophen 500 MG Tab PO ONE (10:53)
[2021-02-11] MEDS ORDERED: EPINEPHrine 1 MG/ML SDV IM PRN (12:30)
[2021-02-11] MEDS ORDERED: Bamlanivimab 700 MG, ETESEVIMAB 1,400 MG in Sodium Chloride 0.9% 100 ML IV ONE (12:30)
[2021-02-11] MEDS ORDERED: Famotidine 20 MG/2 ML SDV IV PRN (12:30)
[2021-02-11] MEDS ORDERED: diphenhydrAMINE 50 MG/ML SDV IVPUSH PRN (12:30)
[2021-02-11] MEDS ORDERED: methylPREDNISolone Sodium Succinate 125 MG/2 ML SDV IVPUSH PRN (12:30)
[2021-02-11] MEDS ORDERED: Acetaminophen 325 MG Tab PO PRN (12:30)
[2021-02-11 14:43] VITALS: BP 104/43; PULSE 63
== END 2021-02-11 15:00 | disposition home or self-care (01) ==
LOC: JP.ED 10:09
DX: U07.1 COVID-19 (principal); I11.0 Hypertensive heart disease with heart failure; I50.9 Heart failure, unspecified; I25.10 Atherosclerotic heart disease of native coronary artery without angina pectoris; Z88.1 Allergy status to other antibiotic agents; Z79.02 Long term (current) use of antithrombotics/antiplatelets; Z79.899 Other long term (current) drug therapy
CPT/HCPCS: 99284; A9270; M0245; Q0245; U0002

== ENCOUNTER 2021-05-18 09:14 | Day surgery (SDC) | payer MEDICARE ==
[2021-05-18] MEDS ORDERED: Sodium Chloride 0.9% 1,000 ML IV SCH (10:00)
[2021-05-18] MEDS ORDERED: Midazolam 1 MG/ML 2 ML SDV ONE (11:05)
[2021-05-18] MEDS ORDERED: Propofol 200 MG/20 ML SDV ONE (11:05)
[2021-05-18] MEDS ORDERED: fentaNYL 100 MCG/2 ML SDV ONE (11:05)
[2021-05-18 13:08] VITALS: BP 110/71; PULSE 82
== END 2021-05-18 13:25 | disposition home or self-care (01) ==
LOC: JP.SDS 09:14
PROVIDERS: ATTEND Surgery
DX: Z12.11 Encounter for screening for malignant neoplasm of colon (principal); D12.2 Benign neoplasm of ascending colon; D12.5 Benign neoplasm of sigmoid colon; G47.33 Obstructive sleep apnea (adult) (pediatric); J45.909 Unspecified asthma, uncomplicated; I50.9 Heart failure, unspecified; I13.0 Hypertensive heart and chronic kidney disease with heart failure and stage 1 through stage 4 chronic kidney disease, or unspecified chronic kidney disease; N18.9 Chronic kidney disease, unspecified; Z80.0 Family history of malignant neoplasm of digestive organs; Z87.891 Personal history of nicotine dependence
CPT/HCPCS: 45380; 45385; 88305; J2250; J2704; J3010; J7030

== ENCOUNTER 2022-06-14 08:32 | Day surgery (SDC) | payer MEDICARE ==
[~2022-06-14 08:32] MED LIST: Sodium Chloride 0.9% 1,000 ML IV SCH
[2022-06-14] MEDS ORDERED: Propofol 200 MG/20 ML SDV ONE (08:57)
[2022-06-14] MEDS ORDERED: fentaNYL 50 MCG/ML SDV ONE (08:58)
[2022-06-14 11:25] VITALS: BP 123/73; PULSE 63
== END 2022-06-14 11:25 | disposition home or self-care (01) ==
LOC: JP.SDS 08:32
PROVIDERS: ATTEND Surgery
DX: Z12.11 Encounter for screening for malignant neoplasm of colon (principal); D12.2 Benign neoplasm of ascending colon; I13.0 Hypertensive heart and chronic kidney disease with heart failure and stage 1 through stage 4 chronic kidney disease, or unspecified chronic kidney disease; N18.9 Chronic kidney disease, unspecified; I50.9 Heart failure, unspecified; I25.2 Old myocardial infarction; Z86.010 Personal history of colon polyps; Z95.818 Presence of other cardiac implants and grafts
CPT/HCPCS: 45380; 88305; J2704; J3010; J7030